=== PATIENT | male | born 1990 | race Asian ===

== ENCOUNTER 2017-02-10 09:11 | Emergency (ER) | payer OTHER ==
[~2017-02-10] VITALS: Ht 170.2 cm; Wt 100.0 kg
[2017-02-10] MEDS ORDERED: PERTUSS(ACELL),DIPH,TET VAC/PF 0.5 ML VIAL IM ONE (10:15)
[2017-02-10 10:53] VITALS: BP 130/82
== END 2017-02-10 10:54 | disposition home or self-care (01) ==
LOC: EMS 09:13
DX: S51.851A Open bite of right forearm, initial encounter (principal); Z91.013 Allergy to seafood; W50.3XXA Accidental bite by another person, initial encounter; Y93.89 Activity, other specified; Y92.89 Other specified places as the place of occurrence of the external cause; Y99.8 Other external cause status
CPT/HCPCS: 90471; 90715; 99283

== ENCOUNTER 2017-07-13 08:50 | Emergency (ER) | payer OTHER ==
[~2017-07-13] VITALS: Ht 170.2 cm; Wt 91.4 kg
[2017-07-13] MEDS ORDERED: IBUPROFEN 800 MG TABLET PO ONE (10:15)
[2017-07-13 11:08] VITALS: BP 139/75
== END 2017-07-13 12:02 | disposition home or self-care (01) ==
LOC: EMS 08:51 → EEVIPCON 08:51 → EMS 12:02
DX: S00.03XA Contusion of scalp, initial encounter (principal); Z91.013 Allergy to seafood; Y04.0XXA Assault by unarmed brawl or fight, initial encounter; Y93.89 Activity, other specified; Y92.89 Other specified places as the place of occurrence of the external cause; Y99.8 Other external cause status
CPT/HCPCS: 99283

== ENCOUNTER 2017-11-26 11:07 | Emergency (ER) | payer OTHER ==
[~2017-11-26] VITALS: Ht 170.2 cm; Wt 91.0 kg
[2017-11-26 11:16] VITALS: BP 153/95
[2017-11-26] MEDS ORDERED: IBUPROFEN 600 MG TABLET PO ONE (11:30)
== END 2017-11-26 13:41 | disposition home or self-care (01) ==
LOC: EMS 11:07
DX: S53.402A Unspecified sprain of left elbow, initial encounter (principal); Z91.013 Allergy to seafood; Y04.0XXA Assault by unarmed brawl or fight, initial encounter; Y93.89 Activity, other specified; Y92.89 Other specified places as the place of occurrence of the external cause; Y99.8 Other external cause status
CPT/HCPCS: 99284

== ENCOUNTER → 2019-11-15 | Outpatient (CLI) | payer OTHER | END | disposition home or self-care (01) | LOC: EMS 15:59 | DX: Z20.828 Contact with and (suspected) exposure to other viral communicable diseases (principal) | CPT/HCPCS: 87426 ==

== ENCOUNTER → 2019-11-17 | Outpatient (CLI) | payer OTHER | END | disposition home or self-care (01) | LOC: EMS 19:16 | DX: Z20.828 Contact with and (suspected) exposure to other viral communicable diseases (principal) | CPT/HCPCS: U0003-CS ==